=== PATIENT | female | born 1995 | race Hispanic/Latino ===

== ENCOUNTER 2020-01-25 14:15 | Emergency (ER) | payer OTHER ==
[~2020-01-25] VITALS: Ht 167.6 cm; Wt 66.0 kg
[2020-01-25 14:16] VITALS: BP 115/56
--- NOTE | 2020-01-25 15:47 | REP ---
REASON: Pain. FINDINGS: The compartments are symmetric and relatively well maintained. There is no acute fracture or destructive osseous lesion. Electronically Signed by Lux Mejía DO 01/25/2020 04:05 P
== END 2020-01-25 16:11 | disposition home or self-care (01) ==
LOC: M ED 14:15
DX: M25.561 Pain in right knee (principal)